=== PATIENT | male | born 1960 | race Caucasian/White ===

== ENCOUNTER 2017-11-13 10:29 | Outpatient (CLI) | payer MEDICARE ==
--- NOTE | 2017-11-13 13:15 | ULT ---
ABDOMINAL ULTRASOUND: History: Hepatitis C Comparison: None. FINDINGS: Aorta is non-aneurysmal. Visualized portion of the pancreatic parenchyma is unremarkable. Aorta and IVC are unremarkable. Mild nodularity of the hepatic contour. Liver measures 17 cm in lengt h. Portal vein is patent with normal phasicity. Common bile duct measures 6 mm. Gallbladder wall thickness is normal. Right kidney measures 10.4 x 4.8 x 4.8 cm without mass, hydrone phrosis or abnormal calcifications. Left kidney measures 11.3 x 5.5 x 5.1 cm without mass, hydronephr osis or calcifications. Spleen not well seen. IMPRESSION: 1. Mildly coarsened hepatic echotexture with nodular contour suggestive of cirrhosis. 2. Spleen not visualized. 3. No acute abnormality. POS: [facility]
== END 2017-11-13 10:30 | disposition home or self-care (01) ==
LOC: ULT 10:29
PROVIDERS: ATTEND Internal Medicine Gastroenterology
DX: B19.20 Unspecified viral hepatitis C without hepatic coma (principal); K76.89 Other specified diseases of liver
CPT/HCPCS: 76700

== ENCOUNTER 2018-01-31 13:36 | Emergency (ER) | payer MEDICARE ==
[2018-01-31 14:05] LABS: Bilirubin Negative (Negative); Blood, Urine Negative (Negative); Clarity CLEAR (Clear); Glucose, Urine (Dipstick) Negative (Negative); Leukocyte Negative (Negative); Nitrite Negative (Negative); Protein, Urine (Dipstick) Negative (Neg-Trace); Specific Gravity, Urine 1.014 (1.002-1.036); pH, Urine 6.5 (5.0-9.0)
[2018-01-31] MEDS ORDERED: Ondansetron ODT 8 MG TAB ONE (14:24)
--- NOTE | 2018-01-31 17:24 | RAD ---
CHEST PA AND LATERAL TWO VIEWS: 01/31/18 HISTORY: 57-year-old male with history of cough and nausea. COMPARISON: 02/19/16. FINDINGS: Heart size is within normal limits. The lungs are clear of acute process. There is borderline hyperin flation. Minimal stable chronic changes. Unchanged from 01/29/18. IMPRESSION: Stable mild chronic changes. No evidence of pneumonia or other acute process. POS: [facility]
== END 2018-01-31 15:05 | disposition home or self-care (01) ==
LOC: ERS 13:36
DX: J40 Bronchitis, not specified as acute or chronic (principal); R11.0 Nausea; Z87.891 Personal history of nicotine dependence; Z79.899 Other long term (current) drug therapy
CPT/HCPCS: 71046; 81003; 93005; 94640; J7620

== ENCOUNTER 2018-02-11 10:35 | Outpatient (CLI) | payer OTHER ==
--- NOTE | 2018-02-11 13:01 | RAD ---
FOUR VIEWS OF CERVICAL SPINE: DATE: 02/11/18. COMPARISON: 07/10/17. HISTORY: Cervical spine pain, followup examination, prior cervical spine surgery. FINDINGS: Provided imaging includes frontal view, open-mouth odontoid view, lateral view, and swimmer's lateral view. There is anterior diskectomy and fusion hardware present at C3-4 level. In addition, anterior diskec mere and fusion hardware are present at C5-6. This hardware is unchanged when compared to the prior exam. There is posterior fusion hardware bilaterally with pedicle screws at C4, C5, and C6 with vert ically oriented interlocking rods. At C7-T1, there is disk space narrowing with degenerative end plate and anterior osteophyte formation . There is no prevertebral soft tissue swelling. No significant anterolisthesis or retrolisthesis is e vident. Open mouth odontoid view demonstrates a normal-appearing dens in C1-2 articulation. IMPRESSION: Stable extensive postoperative hardware within the cervical spine. POS: [facility]
== END 2018-02-11 10:36 | disposition home or self-care (01) ==
LOC: TBSIIMAG 10:35
PROVIDERS: ATTEND Surgery
DX: T84.498A Other mechanical complication of other internal orthopedic devices, implants and grafts, initial encounter (principal); M50.30 Other cervical disc degeneration, unspecified cervical region; Z98.1 Arthrodesis status; Z98.890 Other specified postprocedural states
CPT/HCPCS: 72040

== ENCOUNTER 2018-05-13 09:08 | Outpatient (CLI) | payer OTHER ==
--- NOTE | 2018-05-13 10:58 | RAD ---
CERVICAL SPINE 4 VIEWS: HISTORY: Status post fusion surgery. COMPARISON: 02/11/18. FINDINGS: There is no prevertebral soft tissue swelling. Predental space is normal. On the AP projection, the re are stable degenerative changes. On the open mouth projection, lateral masses of C1 and C2 articulate appropriately. Odontoid process is intact. There is evidence of fusion changes with anterior fusion plate and transvertebral body screw at C3 an d C4 as well as C5 and C6. Disk prosthesis at C5-C6. Posterior element fusion at C4, 5, and C6. Wh en compared to the previous examination, there is no change with regards to the majority of the fusio n hardware, the exception being that there is some perihardware lucency involving the screws at C6. IMPRESSION: Cervical fusion as above. Interval perihardware lucency involving transvertebral body screws at C6. POS: [facility]
== END 2018-05-13 09:09 | disposition home or self-care (01) ==
LOC: TBSIIMAG 09:08
PROVIDERS: ATTEND Surgery
DX: T84.498A Other mechanical complication of other internal orthopedic devices, implants and grafts, initial encounter (principal); M50.30 Other cervical disc degeneration, unspecified cervical region; Z95.1 Presence of aortocoronary bypass graft
CPT/HCPCS: 72040

== ENCOUNTER 2018-05-29 06:42 | Outpatient (CLI) | payer MEDICARE ==
--- NOTE | 2018-05-29 08:36 | ULT ---
ULTRASOUND ABDOMEN COMPLETE HISTORY: Cirrhosis. TECHNIQUE: Sainz-scale ultrasound evaluation of the liver, gallbladder, spleen, pancreas, common bile duct, kidne ys, abdominal aorta, and inferior vena cava (IVC). FINDINGS: There is mild coarsening of the hepatic echotexture without a discrete lesion. There are mild, low l evel echoes of the gallbladder lumen which may be on the basis of gravel-like cholelithiasis/sludge. No evidence of significant ascites. Sheikh's sign is reported as negative by the medicare contact specialist. The spleen and left kidney are not well assessed due to persist bowel gas within this region which decrea ses acoustic penetration. The right kidney is grossly unremarkable. Pancreas is partially obscured from view by bowel content which limits assessment. The common duct measures 4 mm in diameter. IMPRESSION: 1. Mild coarsened echotexture of the liver. No focal hepatic lesion seen. 2. Mild sludge/gravel-like cholelithiasis of the gallbladder. No acute cholecystitis. POS: [facility]
== END 2018-05-29 06:43 | disposition home or self-care (01) ==
LOC: SCSULT 06:42
PROVIDERS: ATTEND Internal Medicine Gastroenterology
DX: K74.60 Unspecified cirrhosis of liver (principal); K82.8 Other specified diseases of gallbladder; R93.2 Abnormal findings on diagnostic imaging of liver and biliary tract
CPT/HCPCS: 76700

== ENCOUNTER 2019-02-26 09:15 | Outpatient (CLI) | payer OTHER ==
--- NOTE | 2019-02-26 09:36 | RAD ---
Exam: Cervical spine 4 views: HISTORY: Cervical radiculopathy, neck pain COMPARISON: 07/10/2017 FINDINGS: Anterior cervical spine fusion changes at C3-C4 and at C5-C6 with dorsal facet screws stabilizing C3, C4, and C5. Very little movement between flexion and extension. No abnormal translation. No prevertebral soft tissue swelling. IMPRESSION: Stable extensive anterior and posterior postoperative changes. Stable from prior study. No significan t new process.
== END 2019-02-26 09:16 | disposition home or self-care (01) ==
LOC: BICRAD 09:15
PROVIDERS: ATTEND Surgery
DX: M54.12 Radiculopathy, cervical region (principal); Z98.890 Other specified postprocedural states
CPT/HCPCS: 72050

== ENCOUNTER 2019-03-09 20:06 | Inpatient (IN) | payer MEDICARE ==
[~2019-03-09 20:06] MED LIST: Glycopyrrolate 0.2 MG/ML 5 ML SYRINGE ONE; Lidocaine 1% PF 5 ML VIAL ONE; Ondansetron PF 4 MG/2 ML Vial ONE; PROPOFOL 200 MG/20 ML VIAL ONE; Rocuronium Bromide 10 MG/ML (10ML VIAL) ONE; Succinylcholine Chloride 20 MG/ML 10 ml SYRINGE FS ONE; ePHEDrine 50 MG/ML VIAL ONE
[2019-03-09] MEDS ORDERED: Lidocaine 1% (PF) 30 ML VIAL ONE (20:13)
[2019-03-09] MEDS ORDERED: Fentanyl 100 MCG/2 ML VIAL ONE ×2 (20:17→22:05)
[2019-03-09] MEDS ORDERED: Ondansetron PF 4 MG/2 ML Vial ONE (20:18)
[2019-03-09] MEDS ORDERED: Adacel (T-DAP) 0.5 ML SYRINGE ONE (20:18)
--- NOTE | 2019-03-09 20:38 | RAD ---
FRONTAL RADIOGRAPH CHEST: 03/09/19 COMPARISON: 01/31/18 HISTORY: Injury, trauma, pain. FINDINGS: Incompletely imaged cervical spine hardware is present. There is degenerative change of bilateral acr omioclavicular joint. Mild linear interstitial prominence and pulmonary hyperinflation. No focal cons olidation or alveolar edema. IMPRESSION: No radiographic evidence of acute cardiopulmonary disease. POS: [facility]
--- NOTE | 2019-03-09 20:43 | RAD ---
LEFT HAND THREE VIEWS: 03/09/19 COMPARISON: None. HISTORY: Injury, trauma, pain, injury to the thumb with a saw. FINDINGS: There is a comminuted and markedly displaced angulated fracture of the mid/distal shaft of the first metacarpal. There is a prominent associated soft tissue injury consistent with an open fracture. Dis nelida fracture fragment is medially displaced and medially angulated. There is an open fracture demonstrating a transverse orientation involving the base of the third dist al phalanx. In addition, there is an open fracture involving the distal lateral aspect of the fourth middle phala nx. No discrete injury to the index finger is seen. There is a soft tissue injury involving the tip of the fifth finger laterally. No definite associated acute fracture is seen involving the fifth dist al phalanx. IMPRESSION: Open fractures of the first metacarpal, the third distal phalanx, and the fourth middle phalanx as de tailed above. There is a soft tissue injury involving the distal aspect of the fifth finger with shawna icated osseous irregularity which may reflect an old fracture. POS: [facility]
[2019-03-09 20:48] LABS: #Basophils 0.1 thou/uL (0.0-0.2); #Eosinphils 0.3 thou/uL (0.0-0.7); #Lymphocytes 1.6 thou/uL (1.20-3.40); #Monocytes 0.7 thou/uL (0.11-0.59); #Neutrophils 6.5 thou/uL (1.40-6.50); %Basophils 0.6 % (0.0-1.0); %Eosinophils 3.5 % (0.0-10.0); %Lymphocytes 17.6 % (21.0-51.0); %Monocytes 7.9 % (0.0-10.0); %Neutrophils 70.4 % (42.0-75.0); Mean Corpuscular HGB CONC 33.7 g/dL (32.0-36.0); Mean Corpuscular Hemoglobin 30.9 pg (27.0-31.0); Mean Corpuscular Volume 91.6 fL (78.0-98.0); Mean Platelet Volume 6.6 fL (7.4-10.4); Platelet Count 291 thou/uL (130-400); RBC Distribution Width 12.1 % (11.5-14.5); Red Blood Cell (RBC) Count 4.22 mill/uL (4.70-6.10); White Blood Cell (WBC) Count 9.2 thou/uL (4.8-10.8)
[2019-03-09 20:56] LABS: PTT 25.3 SEC (22.9-36.1); Prothrombin Time 13.4 SEC (12.0-14.7)
[2019-03-09 21:07] LABS: ALT (SGPT) 19 U/L (8-55); AST (SGOT) 23 U/L (5-34); Albumin 4.2 g/dL (3.5-5.0); Alkaline Phosphatase 79 U/L (40-150); Anion Gap 14 mmol/L (10-20); BUN (Urea Nitrogen) 21 mg/dL (8.4-25.7); Bilirubin, Total 0.7 mg/dL (0.2-1.2); Calc. Creatinine Clearance 0 mL/min (70-130); Calcium 9.7 mg/dL (7.8-10.44); Carbon Dioxide 23 mmol/L (22-29); Chloride 105 mmol/L (98-107); Estimated GFR-MDRD 57; Globulin 2.9 g/dL (2.4-3.5); Glucose 197 mg/dL (70-105); Protein, Total 7.1 g/dL (6.0-8.3); Sodium 138 mmol/L (136-145)
[2019-03-09] MEDS ORDERED: Gentamicin Sulfate 300 MG in Sodium Chloride 0.9% 100 ML IVPB SCH (21:15)
[2019-03-09] MEDS ORDERED: Bupivacaine 0.5% 10 ML VIAL ONE (22:06)
[2019-03-09] MEDS ORDERED: Heparin 5,000 UNITS/ML VIAL ONE (22:55)
[2019-03-09] MEDS ORDERED: Bupivacaine PF 0.5% 30 ML VIAL ONE (22:55)
[2019-03-09] MEDS ORDERED: Betamet Acet/Betamet Na Ph 30 MG/5 ML VIAL ONE (22:55)
[2019-03-09] MEDS ORDERED: Sodium Chloride 0.9% 50 ML ONE (22:56)
[2019-03-09] MEDS ORDERED: Hetastarch 6% 500 ML 0 ML ONE (22:56)
[2019-03-09] MEDS ORDERED: Lidocaine 2% PF 5 ML VIAL ONE (22:56)
[2019-03-09] MEDS ORDERED: Bacitracin Zinc Ointment 30 gm TUBE ONE (22:56)
[2019-03-09] MEDS ORDERED: Fentanyl 250 MCG/5 ML VIAL ONE (23:06)
[2019-03-09] MEDS ORDERED: Midazolam HCl 2 mg/2 ml Vial ONE (23:06)
[2019-03-10] MEDS ORDERED: Sodium Chloride 0.9% 50 ML ONE (00:21)
[2019-03-10] MEDS ORDERED: traMADol HCl 50 MG TAB PO PRN (04:41)
[2019-03-10] MEDS ORDERED: HYDROcodone/Acetaminophen 5/325 mg Tablet PO PRN (04:41)
[2019-03-10] MEDS ORDERED: Bisacodyl 10 MG SUPP PR PRN (04:41)
[2019-03-10] MEDS ORDERED: Ondansetron PF 4 MG/2 ML Vial IV PRN (04:41)
[2019-03-10] MEDS ORDERED: Acetaminophen 325 MG TAB PO PRN (04:41)
[2019-03-10] MEDS ORDERED: Morphine 4 MG/ML VIAL SLOW IVP PRN (04:41)
[2019-03-10] MEDS ORDERED: Milk Of Magnesia 30 ML UDCUP PO PRN (04:41)
[2019-03-10] MEDS ORDERED: Promethazine HCl 25 MG/ML VIAL SLOW IVP PRN (04:43)
[2019-03-10] MEDS ORDERED: Promethazine HCl 25 MG/ML VIAL IM PRN (04:43)
[2019-03-10] MEDS ORDERED: Ondansetron HCl/PF 4 MG/2 ML Vial IVP PRN (04:43)
[2019-03-10] MEDS ORDERED: Meperidine HCl/PF 25 MG/ML VIAL IM PRN (04:44)
[2019-03-10 05:54] VITALS: BMI 26.6
[2019-03-10] MEDS: Sodium Chloride 0.9% 1,000 ML IV SCH ×3 (06:12→23:31)
[2019-03-10] MEDS: HYDROcodone/Acetaminophen 10/325 mg Tablet PO PRN ×3 (06:19→19:56)
[2019-03-10] MEDS: Ketorolac Tromethamine 30 MG/ML VIAL IVP PRN ×3 (06:20→19:57)
[2019-03-10] MEDS: Vancomycin HCl 1.5 GM in Sodium Chloride 0.9% 250 ML 300 ML IVPB SCH (07:45)
[2019-03-10] MEDS: Aspirin 81 mg Enteric Coated Tablet PO SCH ×2 (07:46→19:53)
[2019-03-10] MEDS ORDERED: TETANUS AND DIPHTHERIA TOX/PF 0.5 ML DISP.SYRIN IM SCH (09:00)
--- NOTE | 2019-03-10 09:45 | RAD ---
LEFT FINGER MINIMUM 2 VIEWS: HISTORY: Fractures of the fingers of the left hand. FINDINGS: Interval pinning of the fractures of the distal phalanges of the 3rd and 5th digits and the 1st metac arpal of the left hand have occurred since exam of 03/09/2019. POS: OFF
[2019-03-10] MEDS ORDERED: Vancomycin HCl 1 GM in Premix Bag 1 BAG IVPB SCH (11:00)
[2019-03-10 19:36] VITALS: TEMP 98.8
[2019-03-11] MEDS: HYDROcodone/Acetaminophen 10/325 mg Tablet PO PRN ×2 (01:33→05:53)
[2019-03-11 05:34] LABS: #Basophils 0.1 thou/uL (0.0-0.2); #Eosinphils 0.4 thou/uL (0.0-0.7); #Lymphocytes 1.2 thou/uL (1.20-3.40); #Monocytes 0.9 thou/uL (0.11-0.59); #Neutrophils 5.4 thou/uL (1.40-6.50); %Basophils 0.7 % (0.0-1.0); %Eosinophils 4.7 % (0.0-10.0); %Lymphocytes 15.4 % (21.0-51.0); %Monocytes 11.2 % (0.0-10.0); %Neutrophils 67.9 % (42.0-75.0); Mean Corpuscular HGB CONC 32.7 g/dL (32.0-36.0); Mean Corpuscular Hemoglobin 30.9 pg (27.0-31.0); Mean Corpuscular Volume 94.2 fL (78.0-98.0); Mean Platelet Volume 6.7 fL (7.4-10.4); Platelet Count 235 thou/uL (130-400); RBC Distribution Width 12.3 % (11.5-14.5); Red Blood Cell (RBC) Count 3.89 mill/uL (4.70-6.10)
[2019-03-11] MEDS: Ketorolac Tromethamine 30 MG/ML VIAL IVP PRN ×2 (05:54→11:23)
[2019-03-11] MEDS: Aspirin 81 mg Enteric Coated Tablet PO SCH (07:37)
[2019-03-11 08:18] VITALS: BP 134/74
[2019-03-11] MEDS: Sodium Chloride 0.9% 1,000 ML IV SCH (09:11)
[2019-03-11] MEDS: Vancomycin HCl 1.5 GM in Sodium Chloride 0.9% 250 ML 300 ML IVPB SCH (09:11)
--- NOTE | 2019-03-11 13:35 | OP ---
DATE OF PROCEDURE: 03/10/2019 History is as follows: Skill Saw to his left. DATE OF INJURY: March 09, 2019. Surgery began and finished on the early in the morning of February 2019. PREOPERATIVE DIAGNOSES: 1. Left thumb proximal phalanx fracture, multiple tendon lacerations. 2. 8 cm laceration to the left thumb. 3. Left middle finger;. a. Open distal phalanx fracture. b. Extensor tendon laceration distal phalanx of DIP joint. c. Wound with nailbed involvement. d. Radial digital nerve laceration. e. 3 cm wound. 4. Left ring finger;. a. Open distal interphalangeal joint. b. Open fracture of the neck, slightly osteochondral with piece missing middle phalanx. c. Wound with nailbed involvement. d. Extensor tendon laceration, nail bed injury 3 cm wound and extensor tendon laceration zone 1. 5. Left small finger 2.0 cm small finger laceration with open distal phalanx fracture. PROCEDURE PERFORMED: 1. The left thumb;. a. Debridement of material associated with open metacarpal fracture. b. Debridement of wound complex multiple layers. c. C-arm supervision. d. Repair, extensor pollicis brevis. e. Repair, adductor pollicis. f. Repair, ulnar collateral ligament. g. Repair, intrinsic muscles. h. Closure of 8 cm wound. i. Neuroplasty, digital nerve, macroscopic. j. Debridement of wound as listed above. 2. Left middle finger injuries treatment;. a. Debridement of wound. b. Debridement of open fracture/material associated with open fracture. c. Open reduction and internal fixation of distal phalanx fracture with K-wires. d. Closure of wound 3 cm complex multiple layers. e. Removal of nail. f. Nail bed repair. g. Microscopic digital nerve repair. h. C-arm with C-arm supervision. 3. Left ring finger;. a. Open joint debridement. b. Debridement of open material associated with open fracture. c. Open treatment, ulnar neck distal middle phalanx fracture open treatment. d. Collateral ligament distal phalangeal repair. e. Extensor tendon zone 1 repair. f. Radial digital nerve repair under microscopic guidance. g. Nail removal. h. Nail bed repair. i. C-arm supervision. 4. Left small finger;. a. Open treatment distal phalanx fracture. b. Debridement of material associated with open fracture. c. Debridement of wound. d. Closure, 2.0 cm wound. 5. All of the following procedure application of short-arm splint. 6. Please note that debridements all using the following techniques. a. Excisional technique. b. Debridement in depth was down to include bone and joint and fracture at each finger as described above. c. Instrumentation as follows, Buchanan blade; 15 blade knife; 11 blade knife; tenotomy scissors; Metzenbaum scissors; multiple curettes straight; multiple curettes curved; over 10 L normal saline and Pulsavac irrigation with antibiotics inside after 2000 units of bacitracin/L; [place] elevator and finally there was contamination seen which was removed, however, and particles which were visible to both naked eye and left with a clean wound base allowing coverage. DESCRIPTION OF PROCEDURE: After successful general endotracheal anesthesia, the limb was prepped and draped, prepped carefully as there was instability at least three of the fracture sites and we did not want to lose what was apparent circulation prior to procedure. After the careful prep and drape and pre-scrubbing, time-out was done appropriately. We then had made gross inspection, removed some gross dirt particles outside the wounds and then inflated the first tourniquet to 250 mmHg pressure. Tourniquet time would be as follows: Total 2 hours initially, deflated for 30 minutes while we closed the first wounds and then reinflated for 75 minutes and then deflated at 250 mmHg pressure. First, thumb was approached. We extended the 8 cm wounds 2 cm distal and 2.5 cm proximal to perform a neuroplasty of the digital nerve and discovering that these and superficial radial nerve were intact. The laceration just missed these. We debrided the edges of the wound circumferentially using the techniques listed above until we had no jagged skin. We did the same for the muscle. We then used individual Crile, rongeurs, and curettes as listed above, followed by irrigation of the limb to eliminate soft tissue and bony contamination. Once the bone was cleaned, we then reduced the fracture, we finished the debridement of material associated with open fracture and debridement of the wound, and then held with a large Synthes 399.99 clamp with nearly anatomic surface and bone loss on the dorsum. I passed three K-wires from distal proximal to this leaving the adductor tubercle still visible. Cut the wires at the level of bone and then after radiographs show excellent position. Fracture was very stable. We then used a 3-0 Prolene to repair the intrinsic muscle injury to the first dorsal interossei. We then prepared systolic brevis with a 4-0 Prolene in a [id number] multiple fat with interrupted pattern. We have used the same technique to repair the adductor pollicis and ulnar collateral ligament near the adductor tubercle. We now turned attention to the middle finger, long finger, and small finger. Here, we did stepwise treatment where first we debrided all the material associated with open fractures, we debrided the wounds, and then we debrided the open joint at the left ring finger. Once we had done the debridements, we then did the irrigation. This was then followed by stabilization of the fracture. At the left middle finger, we performed open treatment of distal phalanx fracture with 2 K-wires. The patient had approximately 20% extensive laceration. We removed the nail. We saw a nail bed laceration at the left middle finger. Then, we repaired the nail bed with a 5-0 chromic running junction which was in the middle of the sterile matrix. Once we performed the nail bed repair and removed the nail, we turned attention to visualization of the fracture, which was nearly anatomic, except for some bone loss on the dorsum. At the left long finger, where we debrided the material associated with open fracture as well as the open distal phalangeal. It was here that we had lost a small, 3 mm wide by approximately 4 mm slice osteochondral fracture of the ulnar edge which was underlying collateral ligament injury as well as distal phalanx fracture. All the debridement techniques listed above. We finished the irrigation for the first 5 L for the small and the long finger included and then performed open treatment of the fracture visualized as above. We then had a proximal 25% to 30% extensor tendon laceration, used appropriate stabilization technique with the wires, and then prepared for repair. We turned attention for debridement of the small finger, where we used the same techniques of debridement associated with open fracture distal phalanx. At this time, the laceration was only approximately 2 cm and was jagged, so we debrided the edge of the laceration. There was no nail bed injury and no subungual hematoma, so the nail was not removed. Under the C-arm guidance, we then passed the K-wire appropriately and held this fracture in place without crossing the DIP joint. At this time, we deflated the tourniquet, and since we had wanted to use the tourniquet again for the final phase of the repair of the lesser digits, we used at this time to obtain hemostasis of the thumb, finished the repair of the periosteum underneath the extensor pollicis brevis with a running 2-0 Vicryl. We then closed the skin in its entirety with interrupted 4-0 nylon in alternating simple and mattress pattern. We then closed the skin over the small finger which had been debrided while the tourniquet deflated, all the digits had excellent circulation. This was done with 4-0 nylon interrupted simple pattern as well. Now, we had taken approximately 25 to 30 minutes, so we reinflated the tourniquet after exsanguinated the limb. We inspected nail bed repairs, we completed the collateral ligament repair of the distal interphalangeal joint at the left long finger with a 3-0 Prolene interrupted [id number] pattern and did the same for the extensor tendon zone 1 repair on the ulnar aspect. This left was approximately 10 degrees of apex radial angulation because of the loss of the ulna/osteochondral fragment. The nail bed repair was completed with 5-0 chromic. This involved germinal matrix and a segmental laceration repaired for the sterile matrix and back to the extensor tendon. With the tourniquet still inflated, we brought the C-arm, the C-arm confirmed all the fracture being nearly anatomic with some bone loss seen in one distal phalanx. We then had the microscope zoomed in position appropriately, we turned our attention back to the palmar wounds. We cleared for debridement, and dissected out the digital nerve, radial aspect first to the ring finger. We then repaired where it was cut just proximal to the trifurcation with three #9 Nurolon sutures. Simple pattern was utilized. We did the same x3 at this site. Then, the laceration of digital nerves identified on the radial side of the left middle finger and under microscope guidance, we repaired the nerve, from the vascular bundle, and then closed the remainder repair with four 9-0 nylon sutures each one each corner because of . The patient had the tourniquet completely deflated with hemostasis. We began closure now of the middle and ring fingers including the extension of the wound that were visualized as well as the primary fracture line. We reinspected them, irrigated again with 3 L normal saline Pulsavac pressure to ensure there was no particle seen. Joint was closed and then the wires were cut appropriately below the skin. We used interrupted 4-0 nylon alternating simple and mattress pattern to close these wounds without undue complication. Then, Bacitracin taps were placed on all digits and wrapped individually with bulky hand dressing, a dorsal block splint was placed in the lesser digits including the small and to index finger and a thumb spica placed on the thumb. All digits were pink with 1-second refill. Patient left the operating room without evidence of anesthetic or operative complication. Job ID: [id number]
== END 2019-03-11 11:55 | disposition home or self-care (01) | DRG 501 ==
LOC: ERS 20:06 → SDC/OP 23:41 → T4-A 03-10 05:07
PROVIDERS: ADMIT Orthopaedic Surgery Hand Surgery; ATTEND Orthopaedic Surgery Hand Surgery
PROC: 0PSS04Z Reposition Left Thumb Phalanx with Internal Fixation Device, Open Approach (ICD-10-PCS; principal; 2019-03-10)
PROC: 0LQ80ZZ Repair Left Hand Tendon, Open Approach (ICD-10-PCS; 2019-03-10)
PROC: 0LQ80ZZ Repair Left Hand Tendon, Open Approach (ICD-10-PCS; 2019-03-10)
PROC: 0PSV04Z Reposition Left Finger Phalanx with Internal Fixation Device, Open Approach (ICD-10-PCS; 2019-03-10)
PROC: 0LQ80ZZ Repair Left Hand Tendon, Open Approach (ICD-10-PCS; 2019-03-10)
PROC: 01Q60ZZ Repair Radial Nerve, Open Approach (ICD-10-PCS; 2019-03-10)
PROC: 0KQD0ZZ Repair Left Hand Muscle, Open Approach (ICD-10-PCS; 2019-03-10)
PROC: 0MQ80ZZ Repair Left Hand Bursa and Ligament, Open Approach (ICD-10-PCS; 2019-03-10)
DX: S62.512B Displaced fracture of proximal phalanx of left thumb, initial encounter for open fracture (principal); S66.222A Laceration of extensor muscle, fascia and tendon of left thumb at wrist and hand level, initial encounter; S66.325A Laceration of extensor muscle, fascia and tendon of left ring finger at wrist and hand level, initial encounter; S66.323A Laceration of extensor muscle, fascia and tendon of left middle finger at wrist and hand level, initial encounter; S62.635B Displaced fracture of distal phalanx of left ring finger, initial encounter for open fracture; S62.633B Displaced fracture of distal phalanx of left middle finger, initial encounter for open fracture; S62.638B Displaced fracture of distal phalanx of other finger, initial encounter for open fracture; S63.695A Other sprain of left ring finger, initial encounter; Z23 Encounter for immunization; W31.2XXA Contact with powered woodworking and forming machines, initial encounter; S64.493A Injury of digital nerve of left middle finger, initial encounter; G25.81 Restless legs syndrome; K21.9 Gastro-esophageal reflux disease without esophagitis; F17.210 Nicotine dependence, cigarettes, uncomplicated; Z98.890 Other specified postprocedural states; Z86.19 Personal history of other infectious and parasitic diseases
CPT/HCPCS: 36415; 71045; 76000; 80053; 85025; 85610; 85730; 90471; 90715; 93005; 96365; 96367; 96375; 96376; J0690; J0702; J1580; J1644; J1885; J2001; J2250; J2405; J2704; J3010; J3370; J3490; J7050; S0020

== ENCOUNTER 2019-03-19 06:31 | Day surgery (SDC) | payer OTHER ==
[2019-03-19 07:17] VITALS: BMI 29.0
--- NOTE | 2019-03-19 09:02 | RAD ---
CERVICAL MYELOGRAM: HISTORY: Cervical radiculopathy. EXPOSURE: 1 minute. 434.6 microgray per m2. FINDINGS: Two view cervical spine printing agent radiograph demonstrates anterior fusion plate at C3 and C4, as well as at C5 and C6. There is fusion of the C3-C4 disc space. There is a prosthesis at the C5-C6 disc space. There is posterior fusion hardware at C4, C5, and C6. There is straightening of the normal c ervical lordosis. No obvious fractures. No prevertebral soft tissue swelling. Two view lumbar spine printing agent radiograph demonstrates five lumbar type vertebral bodies. Vacuum disc p henomenon at the L5-S1 level. Mild osteophyte formation. Atherosclerosis of the aorta is noted. Successful lumbar puncture. A total of 9 cc of Isovue-M 300 contrast was administered intrathecally. There were no immediate or post procedure complications. TECHNIQUE: Consent obtained to perform a lumbar puncture for intrathecal contrast administration. The L2-L3 lev el was deemed appropriate. The skin was prepped and draped in a sterile fashion and 1% lidocaine buffered with sodium bicarbonate was used for local anesthesia. Under fluoroscopic guidance, a 22-ga uge spinal needle was advanced into the CSF space. There was flow of CSF to the hub of the needle. Via a short tubing catheter, a total of 9 cc of Isovue-M 300 contrast was administered intrathecally . No immediate or postprocedure complications. IMPRESSION: Successful lumbar puncture for cervical myelogram. Transcribed Date/Time: 03/19/2019 9:27 AM
--- NOTE | 2019-03-19 09:25 | CT ---
POST MYELOGRAM CERVICAL SPINE CT: HISTORY: Cervical radiculopathy. COMPARISON: 07/10/2017 TECHNIQUE: Cervical spine CT is performed in the axial plane. Three-dimensional reformatted images are submitte d FINDINGS: Redemonstration of an anterior fusion plate at C3, C4, as well as at C5-C6. Prosthesis of the C5-C6 level and a bone plug at the C3-C4 level. No john hardware lucency with regards to the anterior fusion hardware. Posterior fusion hardware at C4, C5, and C6 is also uncomplicated. Appropriate ali gnment of the lateral masses of C1 and C2. Intact odontoid process. C2-C3: No high-grade central canal stenosis or high-grade neural foraminal narrowing. C3-C4: Broad-based osteophyte with a central component, causing mass effect upon the thecal sac. Ve ntral subarachnoid space is still maintained. There is mild central canal stenosis. Neural foramina are patent bilaterally. C4-C5: Broad-based discussed by complex with mild central canal stenosis. Minimal right foraminal na rrowing due to uncovertebral and facet hypertrophy. Left neural foramen is patent. C5-C6: Broad-based osteophyte ridge without significant central canal stenosis. Right neural forame n is patent. Moderate left foraminal narrowing due to uncovertebral hypertrophy. C6-C7: No significant central canal stenosis or neural foraminal narrowing. C7-T1: No significant central canal stenosis. Mild bilateral foraminal narrowing. There is 1.9 mm anterolisthesis of C7 upon T1. IMPRESSION: 1. Uncomplicated anterior and posterior fusion hardware. 2. Varying degrees of central canal stenosis and neural foraminal narrowing, as detailed above. No high-grade central canal stenosis. Moderate left foraminal narrowing at C5-C6. Transcribed Date/Time: 03/19/2019 9:41 AM
[2019-03-19] MEDS ORDERED: Iopamidol-M 300 61% 15 ML VIAL ONE (16:49)
== END 2019-03-19 09:55 | disposition home or self-care (01) ==
LOC: CT 06:31 → EDSTATUS 08:00 → CT 09:55
PROVIDERS: ATTEND Surgery
PROC: B01B1ZZ Fluoroscopy of Spinal Cord using Low Osmolar Contrast (ICD-10-PCS; principal; 2019-03-19)
DX: M54.12 Radiculopathy, cervical region (principal); M48.02 Spinal stenosis, cervical region; F17.200 Nicotine dependence, unspecified, uncomplicated; I10 Essential (primary) hypertension; J44.9 Chronic obstructive pulmonary disease, unspecified; E78.5 Hyperlipidemia, unspecified; Z79.899 Other long term (current) drug therapy; Z98.1 Arthrodesis status
CPT/HCPCS: 62302; 72126; Q9967

== ENCOUNTER 2019-04-28 00:43 | Outpatient (CLI) | payer MEDICARE ==
[2019-04-28 10:53] LABS: #Basophils 0.1 thou/uL (0.0-0.2); #Eosinphils 0.5 thou/uL (0.0-0.7); #Lymphocytes 1.6 thou/uL (1.20-3.40); #Monocytes 0.6 thou/uL (0.11-0.59); #Neutrophils 4.4 thou/uL (1.40-6.50); %Eosinophils 7.2 % (0.0-10.0); %Lymphocytes 22.4 % (21.0-51.0); %Monocytes 8.6 % (0.0-10.0); %Neutrophils 60.9 % (42.0-75.0); Mean Corpuscular HGB CONC 32.8 g/dL (32.0-36.0); Mean Corpuscular Hemoglobin 30.9 pg (27.0-31.0); Mean Corpuscular Volume 94.2 fL (78.0-98.0); Mean Platelet Volume 6.7 fL (7.4-10.4); Platelet Count 309 thou/uL (130-400); RBC Distribution Width 13.1 % (11.5-14.5); Red Blood Cell (RBC) Count 4.55 mill/uL (4.70-6.10); White Blood Cell (WBC) Count 7.3 thou/uL (4.8-10.8)
== END 2019-04-28 00:44 | disposition home or self-care (01) ==
LOC: LABBT 00:43
PROVIDERS: ATTEND Orthopaedic Surgery Hand Surgery
DX: Z01.812 Encounter for preprocedural laboratory examination (principal); S62.303A Unspecified fracture of third metacarpal bone, left hand, initial encounter for closed fracture; S62.603A Fracture of unspecified phalanx of left middle finger, initial encounter for closed fracture
CPT/HCPCS: 85025

== ENCOUNTER 2019-04-30 05:27 | Day surgery (SDC) | payer MEDICARE ==
[2019-04-28 10:05] VITALS: BMI 25.8
[2019-04-30] MEDS ORDERED: Bupivacaine HCl 0.5%/Epinephrine 1:200,000/PF 30 ml Vial ONE ×2 (06:25→10:18)
[2019-04-30] MEDS ORDERED: Bacitracin Zinc Ointment 30 gm TUBE ONE (06:26)
[2019-04-30] MEDS ORDERED: Sodium Chloride 0.9% 10 ML ONE (06:26)
[2019-04-30] MEDS ORDERED: Betamet Acet/Betamet Na Ph 30 MG/5 ML VIAL ONE (06:28)
[2019-04-30] MEDS ORDERED: Bupivacaine PF 0.5% 30 ML VIAL ONE (06:28)
[2019-04-30] MEDS ORDERED: Midazolam HCl 2 mg/2 ml Vial ONE (06:32)
[2019-04-30] MEDS ORDERED: Fentanyl 100 MCG/2 ML VIAL ONE ×2 (06:33→06:58)
[2019-04-30] MEDS ORDERED: Lidocaine 1% (PF) 30 ML VIAL ONE (06:33)
[2019-04-30] MEDS ORDERED: Dexamethasone 20 MG/5 ML VIAL ONE (10:35)
[2019-04-30] MEDS ORDERED: Glycopyrrolate 0.2 MG/ML 5 ML SYRINGE ONE (10:35)
[2019-04-30] MEDS ORDERED: ePHEDrine 50 MG/ML VIAL ONE (10:35)
[2019-04-30] MEDS ORDERED: Phenylephrine HCL 10 MG/ML VIAL ONE (10:35)
[2019-04-30] MEDS ORDERED: Lidocaine 1% PF 5 ML VIAL ONE (10:35)
[2019-04-30] MEDS ORDERED: Ondansetron PF 4 MG/2 ML Vial ONE (10:35)
[2019-04-30] MEDS ORDERED: PROPOFOL 200 MG/20 ML VIAL ONE (10:35)
--- NOTE | 2019-04-30 11:47 | RAD ---
INTRAOPERATIVE IMAGING OF THE LEFT HAND: DATE: 04/30/2019. COMPARISON: None. HISTORY: Open reduction and internal fixation. FINDINGS: 13 intraoperative images are provided. Images include visualization of a comminuted first metacarpal fracture which initially demonstrates a single percutaneous pin and later demonstrates fixation with 4 associated screws. Later imaging demonstrates a markedly comminuted fracture deformity of a di stal phalanx which is treated with volar screw and plate fixation and a percutaneous pin. IMPRESSION: Intraoperative imaging as detailed above. Transcribed Date/Time: 04/30/2019 12:01 PM
[2019-04-30] MEDS ORDERED: Ketorolac Tromethamine 30 MG/ML VIAL ONE (12:03)
--- NOTE | 2019-05-01 18:48 | OP ---
DATE OF PROCEDURE: 04/30/2019 PREOPERATIVE DIAGNOSES: 1. Painful wire/hardware, left small finger. 2. Painful wire/hardware, left middle finger. 3. Painful wire, left thumb. 4. Malunion with displacement, left thumb metacarpal shaft oblique fracture. 5. Nonunion with bone defect, left middle finger distal phalanx. All injury secondary to a saw related problem approximately 4 months ago. POSTOPERATIVE DIAGNOSES: 1. Painful wire/hardware, left small finger. 2. Painful wire/hardware, left middle finger. 3. Painful wire, left thumb. 4. Malunion with displacement, left thumb metacarpal shaft oblique fracture. 5. Nonunion with bone defect, left middle finger distal phalanx. All injury secondary to a saw related problem approximately 4 months ago. PROCEDURES PERFORMED: 1. Removal of large wire, left small finger. 2. Removal of K-wire, left middle finger. 3. Removal of K-wire, left thumb. 4. Open reduction and internal fixation with graft, probably synthetic, left thumb metacarpal fracture. 5. Open reduction and internal fixation with graft, bone graft from distal radius, left middle finger distal phalanx fracture. 6. C-arm being used. 7. Application of short-arm splint. ESTIMATED BLOOD LOSS: 25 mL. TOURNIQUET TIME: 53 minutes initial tourniquet, down for 15 minutes and up for 95 minutes, all at 250 mmHg pressure. ANESTHESIA: General LMA technique, augmented by metacarpophalangeal joint block level at all 3 digits, total of 30 mL of Marcaine 0.5% without epi. FINDINGS: Segmental loss of bone over a 3.5 mm long, 5.5 mm wide area at the junction of where the base of proximal phalanx as wide as and goes transitional to a skin, thin neck, making a complex bone grafting indications. DESCRIPTION OF PROCEDURE: After successful general endotracheal, the patient had limb prepped and draped. Initially, tourniquet was not inflated. We performed removal of the K-wire from the small finger and the middle finger under C-arm supervision. We then exsanguinated the limb, inflated the tourniquet, and approached the thumb 1st. We used a previous incision, carried through skin and subcutaneous tissue, and with a small distal incision, I found the K-wire. The fracture was nearly completely healed, but was in a malunion position in frontal sagittal plane, so we found the fracture line with [place] blade, re-established, used a curette to curette the edges and get down to bleeding surface and then performed anatomic reduction sliding the fracture 30% of the width and corrected in the frontal plane radially at the distal fragment and taken distal fragment, taking out at 25 degrees of apex dorsal angulation. We then held with a clamp, placed 4 lag screws, 2 were 1.5, 1 was 2.0 lag screws, and there was no gross motion. There was an area of comminution with previous K-wire had been and we placed 0.5 mL bone putty here. We then deflated the tourniquet, we closed the retinaculum back we had open to visualize the fracture with a 5-0 Prolene, the dorsal nerves were maintained intact. We then closed this wound with a 4-0 nylon interrupted mattress pattern on the skin and then turned attention to the patient's middle finger. We then performed a Tee incision, beginning at the distal 5 mm of the left middle finger on its radial aspect and then carried it across the distal interphalangeal joint 2/[address] between the distal interphalangeal joint crease and finger tip, avoiding the very prominence of the tuft. We carried this through skin and subcutaneous tissue, identified neurovascular bundles, protected it, we were able to visualize the fracture. It is important to note that the fracture had no bone in its gap, there was no fibrous union, there was gross motion. We kept the flexor tendon intact at all times. Then, we measured the gap with a height restore and found to be approximately 3.5 mm long gap. The gap went through the hole width of the fracture, but it was noted that the base of the gap was wide at the base and the end of the gap was as narrow as the distal shaft almost a 2.5 mm difference. For this reason, we selected a piece that will be as long as the base. We then made incision over the Nhan's tubercle, identified both the 3rd and 4th dorsal compartment, protecting the tendons, and then used a power saw to harvest the graft that was of the depth, height, and width of the gap. We placed it where is this in, and after several attempts, it would get best fit and then we harvested another piece of bone to help filling the area where there was comminution on the ulnar aspect. Once we had this in position, we then pinned the 3, but found that it was not rigid enough fixation the pinning, so we then used additional bone graft, placing some cortical cancellous bone and then placed a buttress type plate on the palmar aspect to help hold the bone graft in position dorsally, so it would not escape. We placed 2 screws distal and 1 screw proximal with good apposition without violating the nail bed, keeping them just barely in the cortex dorsally. There was no gross motion when we flexed this through full range. We deflated tourniquet and found appropriate hemostasis. There was still a flexion attitude at the DIP joint, indicative of FDP clinically intact which is what we saw. We deflated the tourniquet and obtained hemostasis. We then closed the wound at the finger and the digit was pink with 1.5-second refill. Closure was accomplished with interrupted 4-0 nylon in a simple pattern. We then turned attention to the wrist, where we closed the retinaculum with 2-0 Vicryl undyed, subcutaneous was closed with 4-0 Monocryl interrupted fashion, and skin was reapproximated with 4-0 nylon. The patient had a dual splint applied, one had a thumb spica and a separate one for the middle finger dorsal and he left the operating room without evidence of anesthetic or operative complication. Job ID: [id number]
== END 2019-04-30 13:07 | disposition home or self-care (01) ==
LOC: SDC 05:27
PROVIDERS: ATTEND Orthopaedic Surgery Hand Surgery
PROC: 0PSQ04Z Reposition Left Metacarpal with Internal Fixation Device, Open Approach (ICD-10-PCS; principal; 2019-04-30)
PROC: 0PSV04Z Reposition Left Finger Phalanx with Internal Fixation Device, Open Approach (ICD-10-PCS; 2019-04-30)
PROC: 0PUV07Z Supplement Left Finger Phalanx with Autologous Tissue Substitute, Open Approach (ICD-10-PCS; 2019-04-30)
PROC: 0PBJ0ZZ Excision of Left Radius, Open Approach (ICD-10-PCS; 2019-04-30)
PROC: 0PU Upper Bones, Supplement (ICD-10-PCS; 2019-04-30)
PROC: 3E0T3BZ Introduction of Anesthetic Agent into Peripheral Nerves and Plexi, Percutaneous Approach (ICD-10-PCS; 2019-04-30)
DX: S62.242 Displaced fracture of shaft of first metacarpal bone, left hand (principal); S62.633 Displaced fracture of distal phalanx of left middle finger; T85.848A Pain due to other internal prosthetic devices, implants and grafts, initial encounter; Z98.890 Other specified postprocedural states; W31.2XXD Contact with powered woodworking and forming machines, subsequent encounter
CPT/HCPCS: 26320; 26546; 26615; 26989; 64415; 73140; 76000; C1713 ×2; J0670; J0690; J0702; J1100; J1885; J2001; J2250; J2370; J2405; J2704; J3010; J3490; S0020

== ENCOUNTER 2019-08-04 11:28 | Day surgery (SDC) | payer MEDICARE ==
[2019-08-04 12:53] LABS: #Eosinphils 0.4 thou/uL (0.0-0.7); #Lymphocytes 1.8 thou/uL (1.20-3.40); #Monocytes 0.7 thou/uL (0.11-0.59); #Neutrophils 5.3 thou/uL (1.40-6.50); %Basophils 0.5 % (0.0-1.0); %Eosinophils 4.4 % (0.0-10.0); %Lymphocytes 21.7 % (21.0-51.0); %Monocytes 8.1 % (0.0-10.0); %Neutrophils 65.3 % (42.0-75.0); Hemoglobin 14.4 g/dL (14.0-18.0); Mean Corpuscular HGB CONC 33.6 g/dL (32.0-36.0); Mean Corpuscular Hemoglobin 31.5 pg (27.0-31.0); Mean Corpuscular Volume 93.8 fL (78.0-98.0); Mean Platelet Volume 6.8 fL (7.4-10.4); Platelet Count 270 thou/uL (130-400); RBC Distribution Width 13.2 % (11.5-14.5); Red Blood Cell (RBC) Count 4.58 mill/uL (4.70-6.10); White Blood Cell (WBC) Count 8.1 thou/uL (4.8-10.8)
[2019-08-04] MEDS ORDERED: Midazolam HCl 2 mg/2 ml Vial ONE ×3 (13:50→15:58)
[2019-08-04] MEDS ORDERED: Bacitracin Zinc Ointment 30 gm TUBE ONE (15:28)
[2019-08-04] MEDS ORDERED: Bupivacaine PF 0.5% 30 ML VIAL ONE (15:28)
[2019-08-04] MEDS ORDERED: Sodium Chloride 0.9% 10 ML ONE (15:28)
[2019-08-04] MEDS ORDERED: Fentanyl 100 MCG/2 ML VIAL ONE (15:58)
--- NOTE | 2019-08-04 17:12 | RAD ---
EXAM: 3 views of the left finger HISTORY: ORIF of distal phalanx fracture COMPARISON: None FINDINGS: Limited intraoperative fluoroscopic views shows 3 percutaneous K wires spanning the comminu abida distal phalanx fracture. Mild distal soft tissue swelling is seen. No degenerative changes are present. IMPRESSION: Percutaneous pinning of distal phalanx
--- NOTE | 2019-08-05 10:20 | OP ---
DATE OF PROCEDURE: 08/04/2019 PREOPERATIVE DIAGNOSIS: Dislodged implant, right ring finger with delayed healing/with incomplete healing of previous complex distal phalanx fracture, left ring finger. PROCEDURES PERFORMED: 1. Removal of deep implant. 2. Closed reduction with pinning x3, left ring finger distal phalanx fracture including subcutaneous and the bone graft. 3. C-arm supervision. 4. Static finger splint application. SPECIMEN REMOVED: None. ESTIMATED BLOOD LOSS: 5 mL. TOURNIQUET TIME: 18 minutes. FINDINGS: Fracture with no gross motion. No distal phalanx or ring finger, left infections whatsoever. INDICATIONS FOR PROCEDURE: Again, the patient had a previous procedure with a small plate placed and the distal screw dislodged and skin. We did the operation urgently in order to prevent infection as well as deep bony infection being prevented. DESCRIPTION OF PROCEDURE: After successful general LMA technique by [place] anesthesia, the limb prepped and draped. We then augmented this with 10 mL of 0.5% Marcaine block before we made the cut and later during the procedure, we gave additional 10 without epinephrine. We brought the C-arm to the field and identified where the proximal screw was as the distal was protruding. Made a amy and then made a curvilinear incision, avoiding the center of tuft pad, dissecting through the midportion of the tuft pad, down to the point where we had worked before and maintained the neurovascular bundle without complication. We then unscrewed the proximal screw, lifted the entire construct out, but before we did, we used a plate to help, which had been used to help buttress the bone fragment. The plate was not moving and we then passed three 0.035 K-wires across the fracture. Made sure we maximized bony contact if at all possible. The patient then had the wires cut below the skin, tourniquet deflated, hemostasis obtained, we then closed the incision as there was no evidence of infection, interrupted 5-0 nylon in simple pattern. Bulky dressing was applied along with a stack splint and the patient left the operating room after a C-arm confirmed excellent position of wires and the fracture construct with no complication. Job ID: [id number]
== END 2019-08-04 18:55 | disposition home or self-care (01) ==
LOC: SDC 11:28
PROVIDERS: ATTEND Orthopaedic Surgery Hand Surgery
PROC: 0RHX34Z Insertion of Internal Fixation Device into Left Finger Phalangeal Joint, Percutaneous Approach (ICD-10-PCS; principal; 2019-08-04)
DX: S62.635G Displaced fracture of distal phalanx of left ring finger, subsequent encounter for fracture with delayed healing (principal); T84.220A Displacement of internal fixation device of bones of hand and fingers, initial encounter; T84.84XA Pain due to internal orthopedic prosthetic devices, implants and grafts, initial encounter; Z98.890 Other specified postprocedural states; Z98.1 Arthrodesis status
CPT/HCPCS: 76000; 85025; J0690; J2250; J3010; J3490; Q4049; S0020

== ENCOUNTER 2021-10-22 13:17 | Outpatient (CLI) | payer MEDICARE | END 2021-10-22 13:18 | disposition home or self-care (01) | LOC: SCSMRI 13:17 | PROVIDERS: ATTEND Nurse Practitioner Family | DX: M25.561 Pain in right knee (principal); M22.41 Chondromalacia patellae, right knee; M65.861 Other synovitis and tenosynovitis, right lower leg; M71.21 Synovial cyst of popliteal space [Baker], right knee ==